=== PATIENT | female | born 1955 | race Two or more races ===

== ENCOUNTER 2018-03-20 10:31 | Emergency (ER) | payer BC ==
[~2018-03-20] VITALS: Ht 165.1 cm; Wt 67.1 kg
== END 2018-03-20 13:20 | disposition home or self-care (01) ==
LOC: ER 10:31
DX: J45.998 Other asthma (principal)

== ENCOUNTER 2023-10-20 11:50 | Emergency (ER) | payer OTHER ==
[~2023-10-20] VITALS: Ht 162.6 cm; Wt 70.3 kg
[2023-10-20] MEDS ORDERED: AMLODIPINE-OLM1 EACH (12:44)
[2023-10-20 16:27] LABS: HEMATOCRIT 39.8 % (36.0-45.00); HEMOGLOBIN 13.2 g/dL (12.0-15.00); MEAN CELL VOLUME 93.4 fL (80.00-100.00); MEAN CORPUSCULAR HEMOGLOBIN 31.1 pg (27.00-32.0); MEAN CORPUSCULAR HGB CONC 33.3 g/dl (32.0-36.0); PLATELET COUNT 291 K/uL (150-450); RED BLOOD COUNT 4.26 M/uL (4.00-6.00); RED CELL DISTRIBUTION WIDTH 14.1 % (11.5-14.5)
[2023-10-20 16:50] LABS: CALCIUM 9.9 mg/dL (8.5-10.1); CREATININE SERUM 0.54 mg/dL (0.55-1.02); GFR 112.27; POTASSIUM 4.09 mEq/L (3.5-5.1)
== END 2023-10-20 19:49 | disposition home or self-care (01) ==
LOC: ER 11:50
PROVIDERS: General Practice
DX: J06.9 Acute upper respiratory infection, unspecified (principal); Z20.822 Contact with and (suspected) exposure to COVID-19